=== PATIENT | female | born 1985 | race African-American/Black ===

== ENCOUNTER 2017-01-29 21:38 | Emergency (ER) | payer MEDICAID ==
[~2017-01-29] VITALS: Ht 162.6 cm; Wt 55.3 kg
[~2017-01-29 21:38] MED LIST: CEPH-264 PO; CEPH500T PO; NITR100C62 PO; ONDA4TAB10 PO; PROM12.553 PO; PROM25SU32 RC; PROM25TA10 PO; SULF1TAB24 PO
[2017-01-29 22:01] LABS: BILIRUBIN,URINE NEGATIVE (NEG); GLUCOSE,URINE NEGATIVE (NEG); NITRITE,URINE POSITIVE (NEG); PH,URINE 6.5; PROTEIN,URINE NEGATIVE (NEG-TRACE); UROBILINOGEN,URINE 0.2 mg/dL (0.2 mg/dL)
[2017-01-29 22:07] LABS: BACTERIA,URINE MANY /HPF (0-FEW); RBC,URINE 0 /HPF (0-2); SQUAMOUS EPITHELIAL CELL,UR FEW /LPF; WBC,URINE 20-40 /HPF (0-4)
[2017-01-29 22:30] LABS: BASO % 0 % (0-3); EOS % 3 % (0-3); HEMATOCRIT 37.6 % (36.0-47.0); LYMPH # 3.4 x10^3/uL (1.0-4.8); LYMPH % 46 % (24-48); MEAN CORPUSCULAR HEMOGLOBIN 29 pg (25-35); MEAN CORPUSCULAR HGB CONC 35 g/dL (31-37); MEAN CORPUSCULAR VOLUME 85 fL (79-100); MONO % 6 % (0-9); NEUT % 45 % (31-73); PLATELET COUNT 463 x10^3/uL (140-400); RED BLOOD COUNT 4.44 x10^6/uL (3.50-5.40); RED CELL DISTRIBUTION WIDTH 12.4 % (11.5-14.5); WHITE BLOOD COUNT 7.4 x10^3/uL (4.0-11.0)
[2017-01-29 22:40] LABS: CALCIUM 8.6 mg/dL (8.5-10.1); CREATININE 0.8 mg/dL (0.6-1.0); GFR 102.6; POTASSIUM 3.7 mmol/L (3.5-5.1)
[2017-01-29 22:41] LABS: NEG OBC SER NEG; POS OBC SER POS
[2017-01-29 22:46] LABS: ALBUMIN 3.6 g/dL (3.4-5.0); ALBUMIN/GLOBULIN RATIO 0.9 (1.0-1.7); TOTAL BILIRUBIN 0.3 mg/dL (0.2-1.0); TOTAL PROTEIN 7.6 g/dL (6.4-8.2)
[2017-01-29] MEDS ORDERED: KETOROLAC TROMETHAMINE 30 MG/ML INJ. IV ONE (23:15)
[2017-01-29 23:28] VITALS: BP 97/54
[2017-01-30] MEDS ORDERED: PHENAZOPYRIDINE 200 MG TABLET. PO ONE (00:30)
--- NOTE | 2017-01-30 04:35 | PHYS DOC ---
Past Medical History Past Medical History: No Pertinent History Past Surgical History: Other Additional Past Surgical Histo: R ANKLE FX Alcohol Use: None Drug Use: None Adult General Chief Complaint Chief Complaint: ABDOMINAL PAIN HPI HPI Patient is a 31 year old G2, P6 AA female who is 6 months with history of recurrent urinary tract infections in pyelonephritis who presents with left flank, pelvic pain, tenderness with very frequency and urgency. No fever chills, nausea vomiting and sweats. Symptoms began 3 days ago and now progressed. No vaginal pain, discharge or bleeding. Last menstrual period was one month ago and irregular with light spotting. No history of painful ovarian cysts, fibroids. No prior abdominal or pelvic surgeries. Other acute symptoms or complaints. Review of Systems Review of Systems Review symptoms as per history of present illness. All other review symptoms are negative. Current Medications Current Medications Current Medications Medications (Trade) Dose Ordered Sig/Sarbjit Start Time Stop Time Status Last Admin Dose Admin Ceftriaxone Sodium 1 gm/ Sodium Chloride 50 ml @ 100 mls/hr Q24H 01/29/17 23:00 01/30/17 01:04 DC 01/29/17 23:22 100 MLS/HR Ceftriaxone Sodium 50 ml @ As Directed STK-MED ONCE 01/29/17 23:18 01/29/17 23:19 DC Ketorolac Tromethamine (Toradol) 30 mg 1X ONCE 01/29/17 23:15 01/29/17 23:16 DC 01/29/17 23:20 30 MG Phenazopyridine HCl (Pyridium) 200 mg 1X ONCE 01/30/17 00:30 01/30/17 00:31 DC 01/30/17 00:55 200 MG Allergies Allergies Allergies Coded Allergies Type Severity Reaction Last Updated Verified No Known Drug Allergies 08/16/14 No Physical Exam Physical Exam Constitutional: Well developed, well nourished, no acute distress, non-toxic appearance. [] HENT: Normocephalic, atraumatic, bilateral external ears normal, oropharynx moist, no oral exudates, nose normal. [] Eyes: PERRLA, EOMI, conjunctiva normal, no discharge. [] Neck: Normal range of motion, no tenderness, supple, no stridor. [] Cardiovascular:Heart rate regular rhythm, no murmur [] Lungs & Thorax: Bilateral breath sounds clear to auscultation [] Abdomen: Bowel sounds normal, soft, lower quadrant pain, tenderness.. [] Skin: Warm, dry, no erythema, no rash. [] Back: No tenderness, no CVA tenderness. [] Extremities: No tenderness, no cyanosis, no clubbing, ROM intact, no edema. [] Neurologic: Alert and oriented X 3, normal motor function, normal sensory function, no focal deficits noted. [] Psychologic: Affect normal, judgement normal, mood normal. [] Current Patient Data Vital Signs Vital Signs Date Time Temp Pulse Resp B/P (MAP) Pulse Ox O2 Delivery O2 Flow Rate FiO2 01/29/17 23:28 69 16 97/54 (68) 99 01/29/17 21:49 98.1 Room Air 98.1 Lab Values Laboratory Tests Test 01/29/17 21:01 01/29/17 21:45 01/29/17 22:20 POC Urine HCG, Qualitative Hcg negative (Negative) Urine Collection Type Void Urine Color Yellow Urine Clarity Cloudy Urine pH 6.5 Urine Specific [place] 1.025 Urine Protein Negative mg/dL (NEG-TRACE) Urine Glucose (UA) Negative mg/dL (NEG) Urine Ketones (Stick) Negative mg/dL (NEG) Urine Blood Negative (NEG) Urine Nitrite Positive (NEG) Urine Bilirubin Negative (NEG) Urine Urobilinogen Dipstick 0.2 mg/dL (0.2 mg/dL) Urine Leukocyte Esterase Moderate (NEG) Urine RBC 0 /HPF (0-2) Urine WBC 20-40 /HPF (0-4) Urine Squamous Epithelial Cells Few /LPF Urine Bacteria Many /HPF (0-FEW) Urine Mucus Marked /LPF White Blood Count 7.4 x10^3/uL (4.0-11.0) Red Blood Count 4.44 x10^6/uL (3.50-5.40) Hemoglobin 13.0 g/dL (12.0-15.5) Hematocrit 37.6 % (36.0-47.0) Mean Corpuscular Volume 85 fL (79-100) Mean Corpuscular Hemoglobin 29 pg (25-35) Mean Corpuscular Hemoglobin Concent 35 g/dL (31-37) Red Cell Distribution Width 12.4 % (11.5-14.5) Platelet Count 463 x10^3/uL (140-400) H Neutrophils (%) (Auto) 45 % (31-73) Lymphocytes (%) (Auto) 46 % (24-48) Monocytes (%) (Auto) 6 % (0-9) Eosinophils (%) (Auto) 3 % (0-3) Basophils (%) (Auto) 0 % (0-3) Neutrophils # (Auto) 3.3 x10^3uL (1.8-7.7) Lymphocytes # (Auto) 3.4 x10^3/uL (1.0-4.8) Monocytes # (Auto) 0.4 x10^3/uL (0.0-1.1) Eosinophils # (Auto) 0.2 x10^3/uL (0.0-0.7) Basophils # (Auto) 0.0 x10^3/uL (0.0-0.2) Sodium Level 140 mmol/L (136-145) Potassium Level 3.7 mmol/L (3.5-5.1) Chloride Level 104 mmol/L (98-107) Carbon Dioxide Level 28 mmol/L (21-32) Anion Gap 8 (6-14) Blood Urea Nitrogen 7 mg/dL (7-20) Creatinine 0.8 mg/dL (0.6-1.0) Estimated GFR (Cockcroft-Gault) 102.6 BUN/Creatinine Ratio 9 (6-20) Glucose Level 108 mg/dL (70-99) H Calcium Level 8.6 mg/dL (8.5-10.1) Total Bilirubin 0.3 mg/dL (0.2-1.0) Aspartate Amino Transferase (AST) 25 U/L (15-37) Alanine Aminotransferase (ALT) 43 U/L (14-59) Alkaline Phosphatase 71 U/L (46-116) Total Protein 7.6 g/dL (6.4-8.2) Albumin 3.6 g/dL (3.4-5.0) Albumin/Globulin Ratio 0.9 (1.0-1.7) L Lipase 163 U/L (73-393) Serum Test, Qualitative Negative (NEG) Laboratory Tests 01/29/17 22:20 Laboratory Tests 01/29/17 22:20 EKG EKG [] Radiology/Procedures Radiology/Procedures [] Course & Med Decision Making Course & Med Decision Making Pertinent Labs and Imaging studies reviewed. (See chart for details) [Symptoms consistent with urinary tract infection with early pyelonephritis. IV fluids antibiotics given the ED with significant clinical improvement. Will is discharged home with continued empiric care with recommendations of PCP follow- up. Return precautions reviewed. Patient verbalizes understanding agreement discharge instructions prior to departure.] Dragon Disclaimer Dragon Disclaimer This electronic medical record was generated, in whole or in part, using a voice recognition dictation system. Departure Departure Impression: Primary Impression: Urinary tract infection Additional Impression: Pelvic pain Disposition: HOME, SELF-CARE Condition: GOOD Patient Instructions: Pelvic Pain, Female, [id number], Urinary Tract Infection, [id number] Additional Instructions: You were evaluated emergency department for pelvic pain and flank pain. Your symptoms are consistent with a lower urinary tract infection with early kidney infection. Please take pain and nausea medication as directed and take next dose of antibiotics in the morning. Follow-up with a local primary care physician in 2-3 days for reevaluation. If you have difficulty obtaining follow- up or develop new or worsening symptoms, please return to the emergency department. Problem Qualifiers DEMARIO GUZMÁN DO Jan 30, 2017 04:35
== END 2017-01-30 01:03 | disposition home or self-care (01) ==
LOC: ER 21:38
DX: N39.0 Urinary tract infection, site not specified (principal); Z87.440 Personal history of urinary (tract) infections
CPT/HCPCS: 36415; 80053; 81001; 81025; 83690; 84703; 85025; 87086; 96365; 96375; 99284; J0696; J1885